=== PATIENT | female | born 1955 | race Caucasian/White ===

== ENCOUNTER 2018-02-12 12:17 | Observation (INO) | payer BC ==
[2018-02-12 12:36] VITALS: BMI 35.0
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
[2018-02-12 13:17] LABS: BASO % 0.7 % (0-2.0); EOS % 0.1 % (0-4.5); HEMATOCRIT 34.3 % (32.4-45.2); HEMOGLOBIN 11.2 GM/dl (10.7-15.3); MCH 27.4 pg (25.7-33.7); MCHC 32.6 g/dl (32.0-36.0); MEAN CELL VOLUME 84.1 fl (80-96); MONO % 5.3 % (3.8-10.2); NEUT % 87.9 % (42.8-82.8); PLATELET COUNT 252 K/MM3 (134-434); RBC 4.08 M/mm3 (3.60-5.2); RDW 15.5 % (11.6-15.6); WHITE BLOOD COUNT 10.8 K/mm3 (4.0-10.8)
[2018-02-12 13:20] LABS: URINE APPEARANCE Clear; URINE BILIRUBIN Negative (NEGATIVE); URINE COLOR Yellow; URINE GLUCOSE (UA) Negative (NEGATIVE); URINE KETONE Negative (NEGATIVE); URINE LEUK ESTERASE Negative (NEGATIVE); URINE NITRITE Negative (NEGATIVE); URINE PROTEIN Negative (NEGATIVE); URINE UROBILINOGEN 0.2 (0.2-1.0)
[2018-02-12 13:48] LABS: ALBUMIN 3.4 g/dl (3.5-5.0); ALK PHOS 124 U/L (32-92); ANION GAP 10 MMOL/L (8-16); BILIRUBIN,TOTAL 0.1 mg/dl (0.2-1.0); BLOOD UREA NITROGEN 8 mg/dl (7-18); CALCIUM 8.7 mg/dl (8.4-10.2); CHLORIDE 95 mmol/L (98-107); CO2 23 mmol/L (22-28); CREATININE 0.6 mg/dl (0.6-1.3); GLUCOSE,RANDOM 108 mg/dl (74-106); MAGNESIUM 1.5 mg/dL (1.8-2.4); PHOSPHOROUS 2.9 mg/dl (2.5-4.6); POTASSIUM 4.1 mmol/L (3.5-5.1); SGOT/AST 18 U/L (10-42); SGPT/ALT 17 U/L (10-40); SODIUM 128 mmol/L (136-145); TOT PROT 6.8 g/dl (6.4-8.3)
[2018-02-12 13:51] LABS: EPI CELLS FEW /HPF; URINE WBC 0-2 (0-5)
[2018-02-12] MEDS ORDERED: SODIUM CHLORIDE 1,000 ML IV STA (13:58)
[2018-02-12] MEDS ORDERED: PATIENT'S OWN MEDICATION (NON-FORMULARY) (Oxycodone Hcl/Acetaminophen [Oxycodon-Acetaminop PO PRN (14:55)
[2018-02-12] MEDS ORDERED: SODIUM CHLORIDE 1,000 ML IV SCH (15:00)
[2018-02-12] MEDS ORDERED: PATIENT'S OWN MEDICATION (NON-FORMULARY) (Clonazepam [Klonopin] 1 MG) PO SCH (15:00)
[2018-02-12] MEDS ORDERED: MAGNESIUM SULF 50% (8.12 MEQ/2 ML-1 GM VIAL) IVPB ONE (15:08)
[2018-02-12] MEDS ORDERED: PROCHLORPERAZINE MALEATE 5 MG TABLET PO PRN (15:15)
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
[2018-02-12] MEDS ORDERED: ACETAMINOPHEN 325 MG TABLET (FP) PO PRN (16:05)
[2018-02-12] MEDS ORDERED: PT OWN MED DRAWER 7, Y5N ONE (17:19)
[2018-02-12] MEDS: INSULIN SLIDING SCALE (NOVOLOG) 1 VIAL SQ SCH ×2 (18:51→22:36)
[2018-02-12] MEDS: ATORVASTATIN CA 20 MG TABLET (FP) PO SCH (21:45)
[2018-02-12] MEDS: clonazePAM 0.5 MG TABLET PO SCH (21:45)
[2018-02-12] MEDS ORDERED: NORTRIPTYLINE HCL 50 MG CAPSULE PO SCH (22:00)
[2018-02-12] MEDS ORDERED: QUEtiapine FUMARATE 200 MG TABLET PO SCH (22:00)
[2018-02-13] MEDS: clonazePAM 0.5 MG TABLET PO SCH ×3 (06:28→21:11)
[2018-02-13] MEDS: INSULIN SLIDING SCALE (NOVOLOG) 1 VIAL SQ SCH ×3 (06:31→16:39)
[2018-02-13] MEDS: oxyCODONE HCL 5 MG TABLET PO PRN ×2 (07:41→21:11)
[2018-02-13 09:10] LABS: ANION GAP 7 MMOL/L (8-16); BLOOD UREA NITROGEN 6 mg/dl (7-18); CALCIUM 8.8 mg/dl (8.4-10.2); CHLORIDE 96 mmol/L (98-107); CO2 24 mmol/L (22-28); CREATININE 0.5 mg/dl (0.6-1.3); GLUCOSE,RANDOM 167 mg/dl (74-106); MAGNESIUM 1.8 mg/dL (1.8-2.4); SODIUM 127 mmol/L (136-145)
[2018-02-13 09:18] LABS: HEMATOCRIT 31.6 % (32.4-45.2); HEMOGLOBIN 10.2 GM/dl (10.7-15.3); MCH 26.5 pg (25.7-33.7); MCHC 32.1 g/dl (32.0-36.0); MEAN CELL VOLUME 82.6 fl (80-96); MEAN PLT VOLUME 7.9 fl (7.5-11.1); PLATELET COUNT 249 K/MM3 (134-434); RBC 3.83 M/mm3 (3.60-5.2); WHITE BLOOD COUNT 9.1 K/mm3 (4.0-10.8)
[2018-02-13] MEDS: PANTOPRAZOLE 40 MG TABLET (FP) PO SCH (09:43)
[2018-02-13] MEDS: ATENOLOL 50 MG TABLET (FP) PO SCH (09:43)
[2018-02-13] MEDS: LOSARTAN 50MG/HCTZ 12.5MG 1 TAB (FP) PO SCH (09:43)
--- NOTE | 2018-02-13 11:26 | EKG ---
Test Reason : Blood Pressure : / mmHG Vent. Rate : 097 BPM Atrial Rate : 097 BPM P-R Int : 130 ms QRS Dur : 078 ms QT Int : 342 ms P-R-T Axes : 035 037 045 degrees QTc Int : 434 ms NORMAL SINUS RHYTHM LOW VOLTAGE QRS NONSPECIFIC T WAVE ABNORMALITY ABNORMAL ECG NO PREVIOUS ECGS AVAILABLE Confirmed by SEVERO BOWLES, PACO ([id number]) on 02/13/2018 11:26:21 AM Referred By: Kely Santillan Confirmed By:PACO ELKINS MD
[2018-02-13] MEDS: NICOTINE 14 MG/24 HOURS TOPICAL PATCH TD SCH (12:14)
[2018-02-13] MEDS ORDERED: NORTRIPTYLINE HCL 25 MG CAPSULE PO SCH ×2 (13:49→22:00)
[2018-02-13] MEDS ORDERED: metFORMIN HCL 500 MG TABLET (FP) PO ONE (18:27)
[2018-02-13 18:39] VITALS: TEMP 98.8
--- NOTE | 2018-02-13 19:15 | PN ---
Physical Exam: SUBJECTIVE: Patient seen and examined OBJECTIVE: Vital Signs Period Temp Pulse Resp BP Sys/Macdonald Pulse Ox Last 24 Hr 97.8 F-99.0 F 89-102 17-19 125-155/62-90 95-96 GENERAL: The patient is awake, alert, and fully oriented, in no acute distress. HEAD: Normal with no signs of trauma. EYES: PERRL, extraocular movements intact, sclera anicteric, conjunctiva clear. No ptosis. ENT: Ears normal, nares patent, oropharynx clear without exudates, moist mucous membranes. NECK: Trachea midline, full range of motion, supple. LUNGS: Breath sounds equal, clear to auscultation bilaterally, no wheezes, no crackles, no accessory muscle use. HEART: Regular rate and rhythm, S1, S2 without murmur, rub or gallop. ABDOMEN: Soft, nontender, nondistended, normoactive bowel sounds, no guarding, no rebound, no hepatosplenomegaly, no masses. EXTREMITIES: 2+ pulses, warm, well-perfused, no edema. NEUROLOGICAL: Cranial nerves II through XII grossly intact. Normal speech, gait not observed. PSYCH: Normal mood, normal affect. SKIN: Warm, dry, normal turgor, no rashes or lesions noted Laboratory Results - last 24 hr 02/12/18 02/13/18 02/13/18 21:57 06:30 08:23 WBC 9.1 RBC 3.83 Hgb 10.2 L Hct 31.6 L MCV 82.6 MCH 26.5 MCHC 32.1 RDW 16.0 H Plt Count 249 MPV 7.9 Sodium Potassium Chloride Carbon Dioxide Anion Gap BUN Creatinine Creat Clearance w eGFR POC Glucometer 115 110 Random Glucose Calcium Magnesium 02/13/18 02/13/18 02/13/18 08:23 11:46 16:27 WBC RBC Hgb Hct MCV MCH MCHC RDW Plt Count MPV Sodium 127 L Potassium 4.0 Chloride 96 L Carbon Dioxide 24 Anion Gap 7 L BUN 6 L Creatinine 0.5 L Creat Clearance w eGFR > 60 POC Glucometer 88 158 Random Glucose 167 H D Calcium 8.8 Magnesium 1.8 Active Medications Generic Name Dose Route Start Last Admin Trade Name Freq PRN Reason Stop Dose Admin Acetaminophen 325 mg 02/12/18 16:05 Tylenol - PO Q8H PRN PAIN 4-6 Atenolol 50 mg 02/13/18 10:00 02/13/18 09:43 Tenormin - PO 50 mg DAILY NIA Administration Atorvastatin Calcium 20 mg 02/12/18 22:00 02/12/18 21:45 Lipitor - PO 20 mg HS NIA Administration Clonazepam 1 mg 02/12/18 22:00 02/13/18 14:14 Klonopin - PO 1 mg TID NIA Administration Guaifenesin 1 tablet 02/13/18 22:00 Mucinex Dm - PO BID NIA HCTZ/Losartan Potassium 1 tab 02/13/18 10:00 02/13/18 09:43 Hyzaar - PO 1 tab DAILY [facility] Administration Insulin Aspart 1 vial 02/12/18 16:30 02/13/18 16:39 Novolog Vial Sliding Scale - SQ Not Given ACHS [facility] Protocol Metformin HCl 1,000 mg 02/14/18 07:00 Glucophage - PO BID@0700,1630 [facility] Nicotine 14 mg 02/13/18 10:00 02/13/18 12:14 Nicoderm Patch - TD 14 mg DAILY [facility] Administration Oxycodone HCl 7.5 mg 02/12/18 16:05 02/13/18 07:41 Roxicodone - PO 7.5 mg Q8H PRN Administration PAIN 4-6 Pantoprazole Sodium 40 mg 02/13/18 10:00 02/13/18 09:43 Protonix - PO 40 mg DAILY NIA Administration Prochlorperazine Maleate 10 mg 02/12/18 15:15 02/13/18 12:41 Compazine - PO 10 mg Q8H PRN Administration ASSESSMENT/PLAN:
[2018-02-13] MEDS: guaiFENesin/D-METHORPHAN HB 1 EACH TAB.ER.12H PO SCH (21:11)
[2018-02-13] MEDS: ATORVASTATIN CA 20 MG TABLET (FP) PO SCH (21:11)
[2018-02-13] MEDS ORDERED: PT OWN MED DRAWER 7, Y5N ONE (21:14)
[2018-02-13] MEDS ORDERED: PATIENT'S OWN MEDICATION (NON-FORMULARY) (Metformin Hcl [Glucophage] 1,000 MG) PO SCH (22:00)
[2018-02-14 06:04] VITALS: BP 140/56; PULSE 101
[2018-02-14] MEDS: clonazePAM 0.5 MG TABLET PO SCH (06:30)
[2018-02-14] MEDS ORDERED: metFORMIN HCL 500 MG TABLET (FP) PO SCH (07:00)
--- NOTE | 2018-02-14 08:39 | DS ---
Physical Exam: SUBJECTIVE: Patient seen and examined OBJECTIVE: Vital Signs Period Temp Pulse Resp BP Sys/Macdonald Pulse Ox Last 24 Hr 97.8 F-98.8 F 89-101 16-19 125-155/56-90 90-96 PHYSICAL EXAM GENERAL: The patient is awake, alert, and fully oriented, in no acute distress. LUNGS: Breath sounds equal, clear to auscultation bilaterally, no wheezes, no crackles, no accessory muscle use. HEART: Regular rate and rhythm, S1, S2 ABDOMEN: Soft, nontender, nondistended EXTREMITIES: 2+ pulses, warm, well-perfused, no edema. NEUROLOGICAL: Cranial nerves II through XII grossly intact. Normal speech LABS Laboratory Results - last 24 hr 02/13/18 02/13/18 02/13/18 08:23 08:23 11:46 WBC 9.1 RBC 3.83 Hgb 10.2 L Hct 31.6 L MCV 82.6 MCH 26.5 MCHC 32.1 RDW 16.0 H Plt Count 249 MPV 7.9 Sodium 127 L Potassium 4.0 Chloride 96 L Carbon Dioxide 24 Anion Gap 7 L BUN 6 L Creatinine 0.5 L Creat Clearance w eGFR > 60 POC Glucometer 88 Random Glucose 167 H D Calcium 8.8 Magnesium 1.8 02/13/18 02/14/18 16:27 06:15 WBC RBC Hgb Hct MCV MCH MCHC RDW Plt Count MPV Sodium Potassium Chloride Carbon Dioxide Anion Gap BUN Creatinine Creat Clearance w eGFR POC Glucometer 158 120 Random Glucose Calcium Magnesium HOSPITAL COURSE: Date of Admission:02/12/18 Date of Discharge: 02/14/18 Minutes to complete discharge: 35 Discharge Summary Reason For Visit: CONFUSED Current Active Problems Altered mental status (Acute) Hyponatremia (Acute) Condition: Stable - Instructions Referrals: Solomon Mckinley MD [Primary Care Provider] - Disposition: HOME - Home Medications Comprehensive Discharge Medication List: Ambulatory Orders Clonazepam [Klonopin] 1 mg PO TID tablet 05/30/12 Quetiapine Fumarate "Xr" [Seroquel Xr] 400 mg PO HS 05/30/12 Quetiapine Fumarate [Seroquel] 200 mg PO HS tablet 05/30/12 traZODone HCL [Trazodone HCl] 100 mg PO HS tablet 05/30/12 Nortriptyline HCl 100 mg PO HS capsule 06/01/13 Atorvastatin Ca [Lipitor] 20 mg PO HS 02/12/18 Oxycodone HCl/Acetaminophen [Oxycodon-Acetaminophen 7.5-325] 1 each PO TID PRN 02/12/18 Pantoprazole Sodium [Protonix -] 40 mg PO DAILY 02/12/18 This patient is new to me today: No Emergency Visit: Yes ED Registration Date: 02/12/18 Care time: The patient presented to the Emergency Department on the above date and was hospitalized for further evaluation of their emergent condition. Critical Care patient: No - Discharge Referral Referred to [facility] No
[2018-02-14] MEDS ORDERED: PT OWN MED DRAWER 7, Y5N ONE ×2 (09:23→11:04)
[2018-02-14] MEDS: PANTOPRAZOLE 40 MG TABLET (FP) PO SCH (09:33)
[2018-02-14] MEDS: NICOTINE 14 MG/24 HOURS TOPICAL PATCH TD SCH (09:33)
[2018-02-14] MEDS: ATENOLOL 50 MG TABLET (FP) PO SCH (09:33)
[2018-02-14] MEDS: LOSARTAN 50MG/HCTZ 12.5MG 1 TAB (FP) PO SCH (09:33)
[2018-02-14] MEDS: guaiFENesin/D-METHORPHAN HB 1 EACH TAB.ER.12H PO SCH (09:33)
[2018-02-14] MEDS: INSULIN SLIDING SCALE (NOVOLOG) 1 VIAL SQ SCH (09:34)
== END 2018-02-14 11:14 | disposition home or self-care (01) ==
LOC: FER 12:17 → FM/S 14:37
PROVIDERS: ADMIT Internal Medicine; ATTEND Nurse Practitioner Acute Care
DX: R41.82 Altered mental status, unspecified (principal); E87.1 Hypo-osmolality and hyponatremia; E83.42 Hypomagnesemia; I10 Essential (primary) hypertension; E78.5 Hyperlipidemia, unspecified; E11.9 Type 2 diabetes mellitus without complications; Z79.84 Long term (current) use of oral hypoglycemic drugs; M54.89 Other dorsalgia; G89.29 Other chronic pain; F17.210 Nicotine dependence, cigarettes, uncomplicated; F99 Mental disorder, not otherwise specified; Z88.0 Allergy status to penicillin; Z88.1 Allergy status to other antibiotic agents; V47.5XXA Car driver injured in collision with fixed or stationary object in traffic accident, initial encounter; Y92.410 Unspecified street and highway as the place of occurrence of the external cause; Y93.89 Activity, other specified; Y99.8 Other external cause status
CPT/HCPCS: 36415; 70450-TC; 71045-TC-FY; 80048; 80053; 81003; 81015; 82550; 82962; 83735; 84100; 84484; 85025; 85027; 87086; 93005; 99283-25; G0378; J7030

== ENCOUNTER 2019-12-30 12:47 | Emergency (ER) | payer BC, OTHER ==
[2019-12-30 12:51] VITALS: BP 135/74; PULSE 93; TEMP 97.6; BMI 36.8
--- NOTE | 2019-12-30 13:15 | PDOC ---
History of Present Illness - General Chief Complaint: Rash Stated Complaint: LLE RASH History Source: Patient Exam Limitations: No Limitations - History of Present Illness Initial Comments: 12/30/19 13:08 64 yo F p/w redness and pain to LLE x4 days. States she put an antifungal cream on it and her rash has improved but she went to the pharmacy today to pecan picker her regular medications and asked the pharmacist if she should come to the ED to have it looked at and the pharmacist told her yes. Denies fevers, numbness, weakness or swelling of LLE. Denies cough, CP, SOB or abdominal pain. Denies any preceding trauma. Past History - Medical History Allergies/Adverse Reactions: Allergies Allergy/AdvReac Type Severity Reaction Status Date / Time erythromycin base Allergy Severe hives and Verified 02/12/18 12:37 [Erythromycin Base] swelling Penicillins Allergy Verified 02/12/18 12:37 Home Medications: Ambulatory Orders Clonazepam [Klonopin] 1 mg PO TID tablet 05/30/12 Quetiapine Fumarate "Xr" [Seroquel XR] 400 mg PO HS 05/30/12 traZODone HCL [Trazodone HCl] 100 mg PO HS tablet 05/30/12 Atorvastatin Ca [Lipitor] 20 mg PO HS 02/12/18 Oxycodone HCl/Acetaminophen [Oxycodon-Acetaminophen 7.5-325] 1 each PO TID PRN 02/12/18 Pantoprazole Sodium [Protonix -] 40 mg PO DAILY 02/12/18 Clindamycin HCl 450 mg PO TID 5 Days #45 capsule 12/30/19 COPD: No GI Disorders: Yes (Iatrogenic constipation) HTN: Yes Hypercholesterolemia: Yes - Reproductive History Is Patient Now?: No - Immunization History Immunization Up to Date: Yes - Psycho-Social/Smoking History Smoking History: Current every day smoker Have you smoked in the past 12 months: No Number of Cigarettes Smoked Daily: 20 Information on smoking cessation initiated: No 'Breaking Loose' booklet given: 02/12/18 - Substance Abuse Hx (Audit-C & DAST Scrn) How often the patient has a drink containing alcohol: Never Score: In Men: 4 or > Positive; In Women: 3 or > Positive: 0 Screen Result (Pos requires Nsg. Audit-10AR): Negative In the last yr the pt used illegal drug/Rx for NonMed reason: No Score: Yes response is considered Positive: 0 Screen Result (Positive result requires Nsg. DAST-10): Negative Review of Systems - Review of Systems Able to Perform ROS?: Yes Comments:: 12/30/19 13:10 GENERAL/CONSTITUTIONAL: No fever or chills. No weakness. HEAD, EYES, EARS, NOSE AND THROAT: No change in vision. No ear pain or discharge. No sore throat. CARDIOVASCULAR: No chest pain or shortness of breath. RESPIRATORY: No cough, wheezing, or hemoptysis. GASTROINTESTINAL: No nausea, vomiting, diarrhea or constipation. GENITOURINARY: No dysuria, frequency, or change in urination. MUSCULOSKELETAL: as per HPI NEUROLOGIC: No headache, vertigo, loss of consciousness, or change in strength/sensation. ENDOCRINE: No increased thirst. No abnormal weight change. HEMATOLOGIC/LYMPHATIC: No anemia, easy bleeding, or history of blood clots. ALLERGIC/IMMUNOLOGIC: No hives or skin allergy. *Physical Exam - Vital Signs Last Vital Signs Temp Pulse Resp BP Pulse Ox 97.6 F 93 H 18 135/74 97 12/30/19 12:48 12/30/19 12:48 12/30/19 12:48 12/30/19 12:48 12/30/19 12:48 - Physical Exam 12/30/19 13:12 GENERAL: Well appearing, in no acute distress HEENT: NCAT, conjunctiva not injected, MMM, EOMI NECK: Normal ROM, supple LUNGS: CTAB. Good air entry. No wheezes, No Rhonchi and no crackles HEART: RRR, + s1 s2 ABDOMEN: Soft, nontender, normoactive bowel sounds. No guarding, no rebound. No masses BACK: no midline or paraspinal tenderness. No CVA tenderness. EXTREMITIES: Warm and well perfused. FROM. No calf tenderness, no LE swelling or size discrepancy, +erythema to superior anterior portion of L lower leg without increased warmth but +ttp, erythema to dorsum of L foot ~[id number] area with increased warmth and ttp, sensation intact to light touch NEUROLOGICAL: Aox3, Speech fluent, face symmetric. Sensation grossly intact to light touch. Ambulatory with steady gait. Strength intact. No focal deficits. Medical Decision Making - Medical Decision Making 12/30/19 13:15 64 yo F with likely very mild lower extremity cellulitis. No systemic signs of infection and patient reports improvement in her symptoms despite no abx. Not rapidly progressive and is not overlying large joint, neurologically intact. Pa renteral abx not indicated at present time. Plan: -d/c with rx for kelfex, return precautions given, patient to f/u with her PMD in 2 days (states PMD is out of the office on mondays) This clinical encounter is taking place during a federal and state health care emergency attributable to the novel [place] Virus pandemic. The Staffing Manager of the Department of Health and Human Services has declared, pursuant to the Public Health Service Act 319F-3 (42 U.S.C. 247d-6d), that a covered persons activities related to medical countermeasures against COVID-19 will be immune from liability under Federal and State law. Discharge - Discharge Information Problems reviewed: Yes Clinical Impression/Diagnosis: Cellulitis and abscess of left leg Condition: Stable Disposition: HOME - Additional Discharge Information Prescriptions: Clindamycin HCl 450 mg PO TID 5 Days #45 capsule - Follow up/Referral Referrals: Solomon Mckinley MD [Primary Care Provider] - - Patient Discharge Instructions Patient Printed Discharge Instructions: DI for Cellulitis -- Adult Additional Instructions: A prescription for clindamycin has been sent to your pharmacy. You should follow up with your PMD in the next 1-2 days. Return to the ED for new or worsening symptoms. - Post Discharge Activity
== END 2019-12-30 13:46 | disposition home or self-care (01) ==
LOC: FER 12:47
DX: L03.116 Cellulitis of left lower limb (principal)
CPT/HCPCS: 99282-25

== ENCOUNTER 2020-03-30 11:49 | Emergency (ER) | payer OTHER ==
[2020-03-30 12:09] VITALS: BP 147/80; PULSE 80; TEMP 98.6; BMI 36.3
== END 2020-03-30 12:45 | disposition home or self-care (01) ==
LOC: FER 11:49
DX: T23.202A Burn of second degree of left hand, unspecified site, initial encounter (principal)
CPT/HCPCS: 99282-25

== ENCOUNTER 2020-04-05 13:58 | Emergency (ER) | payer BC, OTHER ==
[2020-04-05 14:03] VITALS: BP 153/78; PULSE 107; TEMP 98; BMI 36.3
== END 2020-04-05 14:38 | disposition home or self-care (01) ==
LOC: FER 13:58
DX: T23.201A Burn of second degree of right hand, unspecified site, initial encounter (principal)
CPT/HCPCS: 99282-25

== ENCOUNTER 2020-04-26 13:23 | Emergency (ER) | payer BC, OTHER ==
[2020-04-26 13:51] VITALS: BP 156/81; PULSE 83; TEMP 97.8; BMI 35.5
[2020-04-26 14:39] LABS: BASO % 3.1 % (0-2.0); EOS % 0.7 % (0-4.5); HEMATOCRIT 33.1 % (32.4-45.2); HEMOGLOBIN 10.6 GM/dl (10.7-15.3); LYMPH % 23.5 % (8-40); MCH 27.4 pg (25.7-33.7); MCHC 32.2 g/dl (32.0-36.0); MEAN CELL VOLUME 85.2 fl (80-96); MEAN PLT VOLUME 7.7 fl (7.5-11.1); MONO % 7.1 % (3.8-10.2); NEUT % 65.6 % (42.8-82.8); PLATELET COUNT 361 K/MM3 (134-434); RBC 3.88 M/mm3 (3.60-5.2); WHITE BLOOD COUNT 8.4 K/mm3 (4.0-10.8)
[2020-04-26] MEDS ORDERED: FUROSEMIDE 40 MG/4 ML INJECTABLE VIAL IVPUSH ONE (14:43)
[2020-04-26 14:47] LABS: ALBUMIN 3.4 g/dl (3.4-5.0); BILIRUBIN,TOTAL 0.5 mg/dl (0.2-1); CALCIUM 8.3 mg/dl (8.5-10); CREATININE 0.6 mg/dl (0.55-1.3); TOT PROT 6.6 g/dl (6.4-8.2)
[2020-04-26] MEDS ORDERED: FUROSEMIDE 40 MG/4 ML INJECTABLE VIAL ONE (15:29)
[2020-04-26 15:48] LABS: N-TERMINAL BNP 59.1 pg/ml (5-125)
== END 2020-04-26 17:07 | disposition home or self-care (01) ==
LOC: FER 13:23
PROC: 3E033GC Introduction of Other Therapeutic Substance into Peripheral Vein, Percutaneous Approach (ICD-10-PCS; principal; 2020-04-26)
DX: R22.41 Localized swelling, mass and lump, right lower limb (principal); R22.42 Localized swelling, mass and lump, left lower limb
CPT/HCPCS: 36415; 71045-TC-FY; 80053; 82550; 83880; 84484; 85025; 93005; 93970-TC; 99285-25

== ENCOUNTER 2021-07-26 15:24 | Observation (INO) | payer BC, OTHER ==
[2021-07-26 17:25] LABS: HEMATOCRIT 35.2 % (32.4-45.2); HEMOGLOBIN 12.4 G/dL (10.7-15.3); MCH 29.5 pg (25.7-33.7); MCHC 35.1 g/dl (32.0-36.0); MEAN CELL VOLUME 83.9 fl (80-96); MEAN PLT VOLUME 7.8 fl (7.5-11.1); RBC 4.19 10^6/uL (3.60-5.2); RDW 17.4 % (11.6-15.6); WHITE BLOOD COUNT 10.9 10^3/uL (4.0-10.8)
[2021-07-26 17:41] LABS: INR 1.09 (0.83-1.09); PROTHROMBIN TIME (PATIENT) 12.6 SEC (9.7-13.0)
[2021-07-26 17:43] LABS: ALBUMIN 3.8 g/dl (3.4-5.0); BILIRUBIN,TOTAL 0.3 mg/dl (0.2-1); CALCIUM 9.3 mg/dl (8.5-10); CREATININE 0.7 mg/dl (0.55-1.3); TOT PROT 7.2 g/dl (6.4-8.2)
[2021-07-26 17:44] LABS: ACTIVATED PTT 31.1 SECONDS (25.2-36.5)
[2021-07-26] MEDS ORDERED: metFORMIN HCL 500 MG TABLET (FP) PO ONE (18:26)
[2021-07-26] MEDS ORDERED: metFORMIN HCL 500 MG TABLET (FP) ONE (19:10)
[2021-07-26] MEDS ORDERED: POLYETHYLENE GLYCOL (HEALTHYLAX) 3350 17 GM PACKET PO PRN (19:41)
[2021-07-26] MEDS ORDERED: ACETAMINOPHEN 325 MG TABLET (FP) PO PRN (19:41)
[2021-07-26] MEDS ORDERED: ALBUTEROL SO4 2.5/IPRATROPIUM 0.5 INH SOL 3 ML VIAL.NEB. NEB ONE (19:49)
[2021-07-26] MEDS ORDERED: ALBUTEROL SO4 2.5/IPRATROPIUM 0.5 INH SOL 3 ML VIAL.NEB. NEB PRN (19:51)
[2021-07-26] MEDS ORDERED: PATIENT'S OWN MEDICATION (NON-FORMULARY) (Oxycodone Hcl/Acetaminophen [Oxycodone-Acetamino PO PRN (20:05)
[2021-07-26] MEDS ORDERED: CYCLOBENZAPRINE HCL 10 MG TABLET (FP) PO PRN (20:25)
[2021-07-26 21:22] VITALS: BMI 31.4
[2021-07-26] MEDS: oxyCODONE HCL 5 MG TABLET PO PRN (21:35)
[2021-07-26] MEDS: GABAPENTIN 100 MG CAPSULE PO SCH (21:36)
[2021-07-26] MEDS: ATORVASTATIN CA 20 MG TABLET (FP) PO SCH (21:36)
[2021-07-26] MEDS: PROCHLORPERAZINE MALEATE 5 MG TABLET PO PRN (21:39)
[2021-07-26] MEDS ORDERED: MAGNESIUM OXIDE 400 MG TABLET (FP) PO ONE (21:58)
[2021-07-26] MEDS ORDERED: MAGNESIUM SULFATE IN WATER 2 GM/50 ML IVPB IVPB ONE (21:58)
[2021-07-26] MEDS ORDERED: NORTRIPTYLINE HCL 50 MG CAPSULE PO SCH (22:00)
[2021-07-26] MEDS ORDERED: POTASSIUM CHLORIDE TABS 10 MEQ TABLET.ER (FP) PO ONE (22:00)
[2021-07-26] MEDS: NORTRIPTYLINE HCL 25 MG CAPSULE PO SCH (22:29)
[2021-07-26] MEDS: BUDESONIDE/FORMETEROL FUMARATE 160/4.5 mcg INHALER IH SCH (22:30)
[2021-07-26] MEDS ORDERED: LYTES/YERBA SANTA 240 ML BOTTLE MM PRN (23:21)
[2021-07-27] MEDS: GABAPENTIN 100 MG CAPSULE PO SCH ×3 (06:10→21:17)
[2021-07-27] MEDS: metFORMIN HCL 500 MG TABLET (FP) PO SCH ×2 (06:10→16:48)
[2021-07-27] MEDS: INSULIN SLIDING SCALE (NOVOLOG) 1 VIAL SQ SCH ×3 (06:13→16:47)
[2021-07-27] MEDS ORDERED: guaiFENesin/D-M SUGAR-FREE/ACLHOL-FREE 118 ML BOTTLE PO PRN (06:31)
[2021-07-27] MEDS: oxyCODONE HCL 5 MG TABLET PO PRN ×2 (08:22→16:42)
[2021-07-27 08:37] LABS: CREATININE 0.7 mg/dl (0.55-1.3)
[2021-07-27] MEDS: PROCHLORPERAZINE MALEATE 5 MG TABLET PO PRN (08:50)
[2021-07-27 08:56] LABS: HEMATOCRIT 32.9 % (32.4-45.2); HEMOGLOBIN 11.1 G/dL (10.7-15.3); MCH 28.5 pg (25.7-33.7); MCHC 33.6 g/dl (32.0-36.0); MEAN CELL VOLUME 84.5 fl (80-96); MEAN PLT VOLUME 7.7 fl (7.5-11.1); PLATELET COUNT 298.6 10^3/uL (134-434); RBC 3.89 10^6/uL (3.60-5.2); RDW 17.2 % (11.6-15.6); WHITE BLOOD COUNT 7.5 10^3/uL (4.0-10.8)
[2021-07-27] MEDS: NICOTINE 21 MG/24 HOURS TOPICAL PATCH TD SCH (09:17)
[2021-07-27] MEDS: FUROSEMIDE 40 MG TABLET (FP) PO SCH (09:18)
[2021-07-27] MEDS: clonazePAM 0.5 MG TABLET PO PRN ×3 (09:18→21:16)
[2021-07-27] MEDS: BUDESONIDE/FORMETEROL FUMARATE 160/4.5 mcg INHALER IH SCH ×2 (09:18→21:19)
[2021-07-27] MEDS: ATENOLOL 50 MG TABLET (FP) PO SCH (09:18)
[2021-07-27] MEDS: PANTOPRAZOLE 40 MG TABLET PO SCH (09:18)
[2021-07-27] MEDS: LOSARTAN POTASSIUM 50 MG TABLET PO SCH (09:18)
[2021-07-27] MEDS ORDERED: POTASSIUM CHLORIDE TABS 20 MEQ TABLET.ER (FP) PO ONE (10:06)
[2021-07-27] MEDS: ENOXAPARIN NA (PORCINE) 40 MG/0.4 ML DISP.SYRIN SQ SCH (10:44)
[2021-07-27] MEDS: NORTRIPTYLINE HCL 25 MG CAPSULE PO SCH (21:16)
[2021-07-27] MEDS: ATORVASTATIN CA 20 MG TABLET (FP) PO SCH (21:17)
[2021-07-28] MEDS: GABAPENTIN 100 MG CAPSULE PO SCH (05:22)
[2021-07-28 08:21] LABS: ALBUMIN 3.1 g/dl (3.4-5.0); BILIRUBIN,TOTAL 0.4 mg/dl (0.2-1); CALCIUM 9.2 mg/dl (8.5-10); CREATININE 0.7 mg/dl (0.55-1.3); MAGNESIUM 1.7 mg/dL (1.8-2.4)
[2021-07-28 08:39] LABS: HEMATOCRIT 34.1 % (32.4-45.2); HEMOGLOBIN 11.6 G/dL (10.7-15.3); MCH 28.5 pg (25.7-33.7); MCHC 33.9 g/dl (32.0-36.0); MEAN CELL VOLUME 84.3 fl (80-96); MEAN PLT VOLUME 7.8 fl (7.5-11.1); PLATELET COUNT 300.8 10^3/uL (134-434); RBC 4.05 10^6/uL (3.60-5.2); RDW 16.6 % (11.6-15.6); WHITE BLOOD COUNT 7.2 10^3/uL (4.0-10.8)
[2021-07-28] MEDS: oxyCODONE HCL 5 MG TABLET PO PRN (09:44)
[2021-07-28] MEDS: PANTOPRAZOLE 40 MG TABLET PO SCH (09:45)
[2021-07-28] MEDS: LOSARTAN POTASSIUM 50 MG TABLET PO SCH (09:45)
[2021-07-28] MEDS: ATENOLOL 50 MG TABLET (FP) PO SCH (09:45)
[2021-07-28] MEDS: FUROSEMIDE 40 MG TABLET (FP) PO SCH (09:45)
[2021-07-28] MEDS: NICOTINE 21 MG/24 HOURS TOPICAL PATCH TD SCH (09:46)
[2021-07-28] MEDS: ENOXAPARIN NA (PORCINE) 40 MG/0.4 ML DISP.SYRIN SQ SCH (09:46)
[2021-07-28] MEDS: BUDESONIDE/FORMETEROL FUMARATE 160/4.5 mcg INHALER IH SCH (09:48)
[2021-07-28] MEDS: PROCHLORPERAZINE MALEATE 5 MG TABLET PO PRN (09:59)
[2021-07-28] MEDS: clonazePAM 0.5 MG TABLET PO PRN (09:59)
[2021-07-28 10:30] VITALS: BP 140/87; PULSE 96; TEMP 98
[2021-07-28] MEDS: INSULIN SLIDING SCALE (NOVOLOG) 1 VIAL SQ SCH (11:57)
== END 2021-07-28 14:21 | disposition home or self-care (01) ==
LOC: FER 15:24 → FM/S 18:04 → INTOOBSV 18:04 → FM/S 18:40
PROVIDERS: ADMIT Internal Medicine; ATTEND Nurse Practitioner Acute Care
PROC: 3E0F7GC Introduction of Other Therapeutic Substance into Respiratory Tract, Via Natural or Artificial Opening (ICD-10-PCS; principal; 2021-07-26)
PROC: 3E023GC Introduction of Other Therapeutic Substance into Muscle, Percutaneous Approach (ICD-10-PCS; 2021-07-26)
PROC: 3E03329 Introduction of Other Anti-infective into Peripheral Vein, Percutaneous Approach (ICD-10-PCS; 2021-07-26)
PROC: 3E033GC Introduction of Other Therapeutic Substance into Peripheral Vein, Percutaneous Approach (ICD-10-PCS; 2021-07-26)
DX: J15.9 Unspecified bacterial pneumonia (principal); E83.42 Hypomagnesemia; E87.1 Hypo-osmolality and hyponatremia; R68.2 Dry mouth, unspecified; G89.29 Other chronic pain; E87.6 Hypokalemia; I10 Essential (primary) hypertension; R94.31 Abnormal electrocardiogram [ECG] [EKG]; J44.9 Chronic obstructive pulmonary disease, unspecified; F17.210 Nicotine dependence, cigarettes, uncomplicated; F25.9 Schizoaffective disorder, unspecified; Z88.8 Allergy status to other drugs, medicaments and biological substances; Z88.0 Allergy status to penicillin
CPT/HCPCS: 0241U-QW; 36415; 71046-TC-FY; 71250-TC; 80048; 80053; 81003; 82962; 83735; 84484; 85025; 85027; 85610; 85730; 87040; 93005; 94640; 96365; 96366; 96367; 96372; 97116-GP; 97161-GP; 99285-25; G0378